=== PATIENT | female | born 1970 | race Two or more races ===

== ENCOUNTER 2020-12-05 16:35 | Inpatient (IN) | payer MEDICAID ==
[~2020-12-05] VITALS: Ht 157.5 cm; Wt 93.7 kg
[2020-12-05] MEDS ORDERED: SODIUM CHLORIDE 0.9% 1,000 ML IV ONE (17:30)
[2020-12-05 19:30] LABS: Albumin 2.4 g/dL (3.4-5.0); BUN/Creatinine Ratio 21.3; Calcium 7.6 mg/dL (8.5-10.1); Magnesium 2.2 mg/dL (1.6-2.6); Potassium 4.1 mmol/L (3.5-5.1)
[2020-12-05 19:33] LABS: Bilirubin, Total 0.8 mg/dL (0.2-1.0); Total Protein 6.4 g/dL (6.4-8.2)
[2020-12-05 19:34] LABS: Basophils # (auto) 0 10 ^3/uL (0-0.2); Basophils % (auto) 0.2 % (0.0-2.0); Eosinophils # (auto) 0 10 ^3/uL (0-0.8); Lymphocytes # (auto) 0.3 10 ^3/uL (0.4-5.4); Monocytes # (auto) 0.2 10 ^3/uL (0-1.3); Neutrophils # (auto) 4.1 10 ^3/uL (1.6-8.6); White Blood Cell 4.6 10^3/uL (4.4-10.8)
[2020-12-05 19:36] LABS: Hematocrit 29.1 % (36.0-46.0); Hemoglobin 8.7 g/dL (12.2-16.2); Lymphocytes % (auto) 6.6 % (10.0-50.0); Mean Corpuscular Hemoglobin 19.7 pg (28.0-32.0); Mean Corpuscular Volume 65.6 fL (80.0-100.0); Monocytes % (auto) 5.1 % (0.0-12.0); Neutrophils % (auto) 88.1 % (37.0-80.0); Red Blood Cells 4.43 10^6/uL (4.0-5.20); Red Cell Distribution Width 19.1 % (11.8-14.3)
[2020-12-05] MEDS ORDERED: ACETAMINOPHEN 325 MG TAB PO ONE (20:15)
[2020-12-05] MEDS ORDERED: INSULIN LISPRO (HUMAN) 100 UNITS/ML ML SC ONE (20:15)
[2020-12-05] MEDS ORDERED: cefTRIAXone 1GM/50ML D5W 50 ML IV ONE (21:15)
[2020-12-05 21:31] LABS: Urine Bacteria NONE SEEN /hpf (None Seen); Urine Blood 1+ /uL (Negative); Urine Specific Gravity 1.023 (1.001-1.035); Urine WBC 12 /hpf (0 - 5)
[2020-12-05] MEDS ORDERED: NITROGLYCERIN 0.4 MG SL TAB SL PRN (22:30)
[2020-12-05] MEDS ORDERED: ONDANSETRON HCL 4 MG/2 ML VIAL IV PRN (22:30)
[2020-12-05] MEDS ORDERED: MORPHINE SULFATE INJECTION 2 MG/ML SYRG IV PRN (22:30)
[2020-12-05] MEDS ORDERED: DEXTROSE (50%) 50ML SYRG IV PRN (22:30)
[2020-12-05] MEDS ORDERED: TEMAZEPAM 15 MG CAP PO PRN (22:30)
[2020-12-05] MEDS: SODIUM CHLORIDE 0.9% 1,000 ML IV SCH (22:43)
[2020-12-05] MEDS: ACCU-CHEK COMFORT CURVE STRIP VI SCH (23:32)
[2020-12-05] MEDS: InsuLIN REG 1unit/0.01ml Soln (100units/ml) SC SCH (23:35)
[2020-12-06] VITALS (7 sets, daily range): BP systolic 96–138; BP diastolic 51–59
[2020-12-06] MEDS: ACETAMINOPHEN 325 MG TAB PO PRN ×3 (00:56→22:09)
[2020-12-06] MEDS: ACCU-CHEK COMFORT CURVE STRIP VI SCH ×5 (04:06→21:40)
[2020-12-06] MEDS: InsuLIN REG 1unit/0.01ml Soln (100units/ml) SC SCH ×5 (04:07→21:43)
[2020-12-06 06:13] LABS: Basophils # (auto) 0 10 ^3/uL (0-0.2); Eosinophils # (auto) 0 10 ^3/uL (0-0.8); Lymphocytes # (auto) 0.4 10 ^3/uL (0.4-5.4); Mean Corpuscular Volume 65.3 fL (80.0-100.0); Monocytes # (auto) 0.6 10 ^3/uL (0-1.3)
[2020-12-06 06:15] LABS: Basophils % (auto) 0.2 % (0.0-2.0); Hemoglobin 8.4 g/dL (12.2-16.2); Mean Corpuscular Hemoglobin 19.6 pg (28.0-32.0); Mean Corpuscular Hgb Conc. 30.1 g/dL (32.0-36.0); Neutrophils % (auto) 80.8 % (37.0-80.0); Red Blood Cells 4.29 10^6/uL (4.0-5.20)
[2020-12-06 06:49] LABS: Albumin 2.1 g/dL (3.4-5.0); Calcium 7.3 mg/dL (8.5-10.1); Potassium 3.4 mmol/L (3.5-5.1)
[2020-12-06 06:58] LABS: BUN/Creatinine Ratio 28.3; Bilirubin, Total 0.5 mg/dL (0.2-1.0); Total Protein 5.9 g/dL (6.4-8.2)
[2020-12-06] MEDS: LEVOTHYROXINE SODIUM 112 MCG TAB PO SCH (07:26)
[2020-12-06] MEDS: LEVOTHYROXINE SODIUM 25 MCG TAB PO SCH (07:27)
[2020-12-06] MEDS: PANTOPRAZOLE 40 MG TAB PO SCH (10:07)
[2020-12-06] MEDS: SODIUM CHLORIDE 0.9% 1,000 ML IV SCH ×2 (10:25→15:45)
[2020-12-06] MEDS ORDERED: LISI-706 PO (16:49)
[2020-12-06] MEDS ORDERED: INSU1INJ19 SC (16:49)
[2020-12-06] MEDS ORDERED: LEVO-140 PO (16:49)
[2020-12-06] MEDS ORDERED: ATOR10TA52 PO (16:49)
[2020-12-06] MEDS ORDERED: METF-929 PO (16:49)
[2020-12-06] MEDS ORDERED: GLIM4TAB42 PO (16:49)
[2020-12-06 18:19] LABS: % Iron Saturation 6.3 % (15-50)
[2020-12-06] MEDS ORDERED: cefTRIAXone 1GM/50ML D5W 50 ML IV SCH (22:00)
[2020-12-06] MEDS ORDERED: ATORVASTATIN 20 MG TAB PO SCH (22:00)
[2020-12-06] MEDS ORDERED: INSULIN LANTUS (GLARGINE) 1 /0.01ml (100units/ml) SC SCH (22:00)
[2020-12-07] MEDS: ACCU-CHEK COMFORT CURVE STRIP VI SCH ×4 (00:28→12:38)
[2020-12-07] MEDS: InsuLIN REG 1unit/0.01ml Soln (100units/ml) SC SCH ×4 (00:29→11:45)
[2020-12-07] MEDS: SODIUM CHLORIDE 0.9% 1,000 ML IV SCH (02:35)
[2020-12-07 05:00] VITALS: BP 136/71
[2020-12-07 06:02] LABS: Basophils # (auto) 0 10 ^3/uL (0-0.2); Basophils % (auto) 0.2 % (0.0-2.0); Eosinophils # (auto) 0 10 ^3/uL (0-0.8); Lymphocytes # (auto) 0.5 10 ^3/uL (0.4-5.4); Neutrophils # (auto) 2.5 10 ^3/uL (1.6-8.6); Red Cell Distribution Width 19.8 % (11.8-14.3)
[2020-12-07 06:05] LABS: Hematocrit 25.5 % (36.0-46.0); Hemoglobin 7.9 g/dL (12.2-16.2); Lymphocytes % (auto) 13.7 % (10.0-50.0); Mean Corpuscular Hemoglobin 19.8 pg (28.0-32.0); Mean Corpuscular Hgb Conc. 31.2 g/dL (32.0-36.0); Mean Corpuscular Volume 63.6 fL (80.0-100.0); Monocytes # (auto) 0.3 10 ^3/uL (0-1.3); Monocytes % (auto) 10.2 % (0.0-12.0); Neutrophils % (auto) 75.9 % (37.0-80.0); Nucleated Red Blood Cells % 0.3 %; Red Blood Cells 4.01 10^6/uL (4.0-5.20); White Blood Cell 3.3 10^3/uL (4.4-10.8)
[2020-12-07] MEDS: LEVOTHYROXINE SODIUM 112 MCG TAB PO SCH (06:19)
[2020-12-07] MEDS: LEVOTHYROXINE SODIUM 25 MCG TAB PO SCH (06:20)
[2020-12-07 06:31] LABS: Potassium 3.1 mmol/L (3.5-5.1)
[2020-12-07 06:52] LABS: BUN/Creatinine Ratio 35.4; Bilirubin, Total 0.4 mg/dL (0.2-1.0); Calcium 7.5 mg/dL (8.5-10.1); Magnesium 2.5 mg/dL (1.6-2.6); Total Protein 5.6 g/dL (6.4-8.2)
[2020-12-07 08:00] VITALS: BP 147/73
[2020-12-07 09:00] VITALS: BP 147/73
[2020-12-07] MEDS: PANTOPRAZOLE 40 MG TAB PO SCH (09:01)
[2020-12-07] MEDS ORDERED: POTASSIUM CHL 20 Meq TABLET PO ONE (12:45)
[2020-12-07] MEDS ORDERED: ERGOCALCIFEROL 50,000 UNIT(1.25MG) CAP PO ONE (12:45)
[2020-12-07] MEDS ORDERED: CHOL20007 PO (12:50)
[2020-12-07] MEDS ORDERED: LEV100T PO (12:50)
[2020-12-07] MEDS ORDERED: FER325T PO (12:52)
[2020-12-07 13:00] VITALS: BP 151/69
[2020-12-07 15:27] VITALS: BP 151/69
== END 2020-12-07 16:15 | disposition home health service (06) | DRG 420 ==
LOC: EDBD 16:35 → ER 16:35 → TELE 22:16 → TELE-WESTW 23:45
PROVIDERS: ADMIT Nurse Practitioner; ATTEND Internal Medicine
PROC: 05HF33Z Insertion of Infusion Device into Left Cephalic Vein, Percutaneous Approach (ICD-10-PCS; principal; 2020-12-06)
PROC: B54NZZA Ultrasonography of Left Upper Extremity Veins, Guidance (ICD-10-PCS; 2020-12-06)
DX: E11.65 Type 2 diabetes mellitus with hyperglycemia (principal); D69.6 Thrombocytopenia, unspecified; Z20.822 Contact with and (suspected) exposure to COVID-19; E86.0 Dehydration; D50.9 Iron deficiency anemia, unspecified; E03.9 Hypothyroidism, unspecified; E55.9 Vitamin D deficiency, unspecified; E66.9 Obesity, unspecified; E87.6 Hypokalemia; Z91.14 Patient's other noncompliance with medication regimen; I10 Essential (primary) hypertension; Z68.37 Body mass index [BMI] 37.0-37.9, adult
CPT/HCPCS: 36415; 36600; 71045; 74176; 76775; 80053; 80061; 81001; 81025; 82010; 82306; 82805; 82962; 83036; 83540; 83550; 83735; 84443; 84484; 84702; 85025; 87086; 87426; 93005; 96361; 96365; 96372; G0378; J0696; J1815; J2405

== ENCOUNTER 2023-04-08 11:57 | Emergency (ER) | payer OTHER, MEDICAID ==
[~2023-04-08] VITALS: Ht 160 cm; Wt 100.8 kg
[~2023-04-08 11:57] MED LIST: ATOR10TA52 PO; FER325T PO; GLIM4TAB42 PO; INSU1INJ19 SC; LEV100T PO; LISI-706 PO; METF-929 PO
[2023-04-08 14:42] VITALS: BP 151/79; PULSE 98; RESP 18; TEMP 97.7; O2SAT 98
[2023-04-08] MEDS: HYDROcodone-ACET 5/325MG TAB PO ONE (14:44)
[2023-04-08] MEDS: KETOROLAC TROMETH 30 MG/ML 1ML VIAL IM ONE (14:44)
[2023-04-08] MEDS ORDERED: MELO7.5T7 PO (15:17)
[2023-04-08] MEDS ORDERED: CYCL-837 PO (15:17)
== END 2023-04-08 15:38 | disposition home or self-care (01) ==
LOC: ER 11:57
DX: R07.89 Other chest pain (principal); M54.6 Pain in thoracic spine; I10 Essential (primary) hypertension; E11.9 Type 2 diabetes mellitus without complications; Z79.899 Other long term (current) drug therapy; V98.8XXA Other specified transport accidents, initial encounter; Y93.89 Activity, other specified; Y92.89 Other specified places as the place of occurrence of the external cause; Y99.8 Other external cause status
CPT/HCPCS: 71045; 72040; 96372; 99284; J1885